=== PATIENT | female | born 1990 | race Caucasian/White ===

== ENCOUNTER 2023-08-11 11:39 | Outpatient (OUT) | payer OTHER, SELFPAY ==
--- NOTE | 2023-08-11 12:04 | XR_ITS ---
The [address] [address] Patient Name: JOSSUE MCARTHUR MRN: [id number] date: 1990 Sex: F Assigned Patient Location: [facility] Current Patient Location: Accession/Order Number: [id number] Exam Date: 08/11/2023 11:55 Report Date: 08/12/2023 09:11 At the request of: NON-STAFF PHYSICIAN Procedure: XR cervical spine 5V EXAMINATION: XR cervical spine 5V HISTORY: Left Shoulder Pain, Neck Pain COMPARISON: No relevant comparison available. FINDINGS: BONES: No significant spondylosis, scoliosis, fracture, or visible bony lesion. DISC SPACES: No significant disc height narrowing, subluxation, or endplate abnormality. PARASPINOUS: Negative. No paraspinous abnormality is seen. OTHER: Negative. XR/XR cervical spine 5V IMPRESSION: 1. No appreciable acute abnormality or significant degenerative changes. Electronically authenticated by: BOB MARTINES Date: 08/12/2023 09:11
--- NOTE | 2023-08-11 12:04 | XR_ITS ---
The [address] [address] Patient Name: JOSSUE MCARTHUR MRN: [id number] date: 1990 Sex: F Assigned Patient Location: [facility] Current Patient Location: [facility] Accession/Order Number: [id number] Exam Date: 08/11/2023 11:55 Report Date: 08/12/2023 09:13 At the request of: NON-STAFF PHYSICIAN Procedure: XR shoulder LT min 2V PROCEDURE: XR shoulder LT min 2V HISTORY: Left Shoulder Pain, Neck Pain , acute COMPARISON: None. FINDINGS: BONES:No fracture, acute abnormality, or significant arthropathy. SOFT TISSUES:No visible soft tissue swelling. EFFUSION:None visible. OTHER: Negative. XR/XR shoulder LT min 2V IMPRESSION: 1. No acute bone abnormality or appreciable degenerative changes. Electronically authenticated by: BOB MARTINES Date: 08/12/2023 09:13
== END 2023-08-11 11:40 | disposition home or self-care (01) ==
LOC: RAD 11:45
DX: M54.2 Cervicalgia (principal); M25.512 Pain in left shoulder
CPT/HCPCS: 72050; 73030

== ENCOUNTER 2024-07-04 16:52 | Outpatient (OUT) | payer OTHER, SELFPAY ==
[2024-07-06 05:08] LABS: HIV Ab/p24 Ag Screen Non Reactive (Non Reactive)
[2024-07-06 06:19] LABS: HCV Antibody Non Reactive (Non Reactive)
[2024-07-06 12:08] LABS: Rapid Plasma Reagin, Quant Non Reactive titer (NonRea<1:1)
== END 2024-07-04 16:53 | disposition home or self-care (01) ==
PROVIDERS: Visit Provider Obstetrics & Gynecology
DX: Z11.3 Encounter for screening for infections with a predominantly sexual mode of transmission (principal)
CPT/HCPCS: 36415; 86592; 86695; 86696; 86803; 87389